=== PATIENT | female | born 1970 | race Caucasian/White ===

== ENCOUNTER → 2017-09-25 | Outpatient (CLI) | payer OTHER ==
--- NOTE | 2017-09-25 10:18 | RAD ---
Sacrococcygeal spine, 3 views, 09/25/2017: History: Coccygeal pain No fracture or destructive bony lesion is seen. The presacral soft tissues are unremarkable. IMPRESSION: No acute abnormality is detected.
== END | disposition home or self-care (01) ==
LOC: PMG 09:38
PROVIDERS: ATTEND Physician Assistant
DX: M53.3 Sacrococcygeal disorders, not elsewhere classified (principal)
CPT/HCPCS: 72220

== ENCOUNTER → 2021-11-02 | Outpatient (CLI) | payer OTHER ==
--- NOTE | 2021-11-03 08:43 | RAD ---
AP and Lateral Views of the Chest 11/02/2021 6:09 PM Indication: Cough, shortness of breath, wheezing Comparison: Chest radiograph September 20, 2016 Findings: There is no hyperinflation. There is no focal consolidation or infiltrate identified. Heart size is normal. There is no evidence of pneumothorax or pleural effusion. No acute osseous abnormali ties are identified. Impression: No evidence of acute cardiopulmonary process. Electronically signed by: Chase Reyna MD (11/03/2021 8:41 AM) [id number]
== END ==
LOC: PMG 18:02
PROVIDERS: ATTEND Nurse Practitioner Family
DX: R05.9 Cough, unspecified (principal); R06.2 Wheezing; R06.02 Shortness of breath
CPT/HCPCS: 71046